=== PATIENT | male | born 1955 | race Caucasian/White ===

== ENCOUNTER 2018-08-29 00:13 | Outpatient (CLI) | payer OTHER, SELFPAY ==
[2018-08-29 10:40] LABS: HGB 16.3 g/dL (13.5-17.5); Mean Corp. HGB Concentration 34.7 g/dL (32.0-36.0); Mean Corpuscular Volume 89.4 fL (80-95); Mean Platelet Volume 10.5 fL (8.0-11.0); Platelet Count 196 x1000/uL (130-400); RBC 5.26 m/cumm (4.50-6.00); RBC Distribution Width 12.5 % (11.8-14.1); White Blood Cell Count 4.55 k/cumm (4.4-10.8)
[2018-08-29 11:01] LABS: Hemoglobin A1C 9.7 % (4.5-6.2)
[2018-08-29 11:18] LABS: ALT 33 U/L (12-78); AST 16 U/L (15-37); Albumin 4.1 g/dL (3.4-5.0); Alkaline Phosphatase 84 U/L (46-116); Anion Gap 9.3 mmol/L (3-11); BUN 17 mg/dL (7-18); Bilirubin, Total 0.8 mg/dL (0.2-1.0); CO2 26.7 mmol/L (21.0-32.0); CREATININE 0.95 mg/dL (0.70-1.30); Calcium 8.8 mg/dL (8.5-10.1); Chloride 101 mmol/L (98-107); Cholesterol 195 mg/dL (50-200); Glucose 257 mg/dL (70-100); HDL Cholesterol 46 mg/dL (40-60); LDL CHOLESTEROL 127 mg/dL (<100); Potassium 4.3 mmol/L (3.5-5.1); Sodium 137 mmol/L (136-145); Total Protein 7.4 g/dL (6.4-8.2); Triglyceride 133 mg/dL (30-150)
[2018-08-29 11:53] LABS: COMMENT (LAB VIEW ONLY) 260.97 mg/dL; Microalb ug/mg Crea 13.2 ug/mg Cr
== END 2018-08-29 00:33 ==
PROVIDERS: PCP Emergency Medicine; Visit Provider Family Medicine
DX: E11.9 Type 2 diabetes mellitus without complications (principal); E78.5 Hyperlipidemia, unspecified; I10 Essential (primary) hypertension; Z00.00 Encounter for general adult medical examination without abnormal findings; Z01.818 Encounter for other preprocedural examination
CPT/HCPCS: 36415; 80053; 80061; 83721; 85027; 82043; 82570; 83036

== ENCOUNTER 2019-03-06 00:16 | Outpatient (CLI) | payer OTHER, SELFPAY ==
[2019-03-06 10:12] LABS: Anion Gap 10.2 mmol/L (3-11); BUN 21 mg/dL (7-18); CO2 26.8 mmol/L (21.0-32.0); CREATININE 0.81 mg/dL (0.70-1.30); Calcium 9.2 mg/dL (8.5-10.1); Chloride 100 mmol/L (98-107); Glucose 150 mg/dL (70-100); Potassium 4.5 mmol/L (3.5-5.1); Sodium 137 mmol/L (136-145)
[2019-03-06 10:13] LABS: Hemoglobin A1C 8.1 % (4.5-6.2)
== END 2019-03-06 00:36 ==
PROVIDERS: PCP Emergency Medicine; Visit Provider Family Medicine
DX: E11.9 Type 2 diabetes mellitus without complications (principal)
CPT/HCPCS: 36415; 80048; 83036

== ENCOUNTER 2019-09-19 09:22 | Outpatient (CLI) | payer OTHER, SELFPAY ==
[2019-09-19 10:36] LABS: Hemoglobin A1C 9.3 % (3.8-5.6)
[2019-09-19 11:34] LABS: ALT 35 U/L (16-63); AST 18 U/L (15-37); Albumin 4.2 g/dL (3.4-5.0); Alkaline Phosphatase 83 U/L (46-116); Anion Gap 9.8 mmol/L (3-11); BUN 14 mg/dL (7-18); Bilirubin, Total 0.7 mg/dL (0.2-1.0); CO2 29.2 mmol/L (21.0-32.0); CREATININE 0.94 mg/dL (0.70-1.30); Calcium 9.1 mg/dL (8.5-10.1); Chloride 101 mmol/L (98-107); Glucose 213 mg/dL (74-106); Potassium 4.6 mmol/L (3.5-5.1); Sodium 140 mmol/L (136-145); Total Protein 7.2 g/dL (6.4-8.2)
== END 2019-09-19 09:42 ==
PROVIDERS: PCP Family Medicine; Visit Provider Family Medicine
DX: E11.9 Type 2 diabetes mellitus without complications (principal)
CPT/HCPCS: 36415; 80053; 83036

== ENCOUNTER 2020-11-24 09:48 | Outpatient (REF) | payer OTHER, SELFPAY ==
[2020-11-24 13:58] LABS: Anion Gap 5.4 mmol/L (3-11); BUN 19 mg/dL (7-18); CO2 29.6 mmol/L (21.0-32.0); COMMENT (LAB VIEW ONLY) 95.85 mg/dL; CREATININE 0.9 mg/dL (0.70-1.30); Calculated LDL 119 mg/dL (<100); Chloride 97 mmol/L (98-107); Cholesterol 206 mg/dL (<200); Glucose 261 mg/dL (74-106); HDL Cholesterol 57 mg/dL (40-60); Microalb ug/mg Crea 9.2 ug/mg Cr; Potassium 4.1 mmol/L (3.5-5.1); Sodium 132 mmol/L (136-145); Triglyceride 150 mg/dL (<150)
[2020-11-24 14:43] LABS: Hemoglobin A1C 11.2 % (<5.7)
[2020-11-24 22:02] LABS: PSA, Screening 1.9 ng/mL (0.0-4.5)
== END 2020-11-24 09:49 | disposition home or self-care (01) ==
LOC: LBN 09:48
PROVIDERS: PCP Family Medicine; Visit Provider Emergency Medicine
DX: Z00.00 Encounter for general adult medical examination without abnormal findings (principal); I10 Essential (primary) hypertension; E11.9 Type 2 diabetes mellitus without complications; Z12.5 Encounter for screening for malignant neoplasm of prostate
CPT/HCPCS: 80048; 80061; 84153; 82043; 82570; 83036

== ENCOUNTER 2020-12-26 03:03 | Outpatient (CLI) | payer OTHER, SELFPAY ==
--- NOTE | 2020-12-26 16:01 | W.NUTCONSULT ---
Date of service: 12/26/20 Time of Service: 14:00 Nutritional Consult ASSESSMENT: 65 y/o Male ( 72' /185 lbs.) presents with referral for hyperglycemia and DM education. He reports he was diagnosed 10 yrs ago.On metformin 500mg BID and recently started glipizide 10mg after visiting PCP. Documentation shows steadily climbing A1c over two years. His main concern at this encounter was A1c of 11.2 last month. He does not use regular finger sticks to track his BG levels. He reports that he know what he needs to do to lower his BG and states that he has taken action in the last month. Adriano was able to give a diet recall and was aware of where he could make adjustments to reduce and avoid sugary high CHO snacks. His breakfast meals are High CHO choices such as a doughnut and his description of lunch and supper was that of well balanced nutritionally sound meals made with fresh whole foods. Two random finger sticks at this encounter were 113 and 125 mg/dl which are WNL. This could be a result of the addition of glipizide and lifestyle change around food choices. 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 Today his PO intake was limited due to busy at work and he reported eating an orange and some PB and crackers today. He drinks diet soda, diet cranberry juice, gatorade zero. He has family hx DM with father ( now ) having had bilateral BKA's r/t the disease. He and his doo the cooking at home. NUTRITIONAL DIAGNOSIS: DX: Hyperglycemia rt DM 2 AEB: A1c 11.2%. INTERVENTION: Reviewed foot care, long-term complications associated w/ hyperglycemia.Recommended low CHO meal choices and reviewed desired BG levels. Recommended he acquire glucometer and strips to take FBG and 2 hours postprandial at supper meal to avoid encroaching on work schedule. Provided BG and food record forms to help w/ tracking. Took BG using glucometer X2 to demonstrate the proper technique and explained the importance of finger sticks. Provided literature on appropriate BG levels. Reviewed principals of CHO counting and provided examples of portion sizes and CHO values of common foodserglycemia rt DM 2 AEB: A1c 11.2%. MONITORING AND EVALUATION: Adriano is a determined man with a strong constitution that may be helpful to him as he continues to drill down on his BG numbers with diet and medicine. His lower numbers at this encounter may be evidence of that. This RD recommended return visit in 30 days to track progress and provided contact information for him to share BG readings and food record X7 days to help identify trends. Glipizide appears to be helping along with food choices. He is for the moment. on the right track. Time spent face to face: Time Spent in Nutritional Counseling and Treatment: 4 units/1 hour
== END 2020-12-26 03:04 | disposition home or self-care (01) ==
LOC: DS 03:03
PROVIDERS: PCP Family Medicine; Visit Provider Dietitian, Registered
DX: E11.65 Type 2 diabetes mellitus with hyperglycemia (principal); Z79.84 Long term (current) use of oral hypoglycemic drugs; Z71.3 Dietary counseling and surveillance
CPT/HCPCS: 97802

== ENCOUNTER 2021-02-22 08:34 | Outpatient (REF) | payer OTHER, SELFPAY ==
[2021-02-22 12:51] LABS: Anion Gap 9.4 mmol/L (3-11); BUN 16 mg/dL (7-18); CO2 28.6 mmol/L (21.0-32.0); CREATININE 0.8 mg/dL (0.70-1.30); Calcium 8.5 mg/dL (8.5-10.1); Chloride 104 mmol/L (98-107); Glucose 147 mg/dL (74-106); Potassium 3.9 mmol/L (3.5-5.1); Sodium 142 mmol/L (136-145)
[2021-02-22 12:57] LABS: Hemoglobin A1C 8.9 % (<5.7)
[2021-02-22 14:22] LABS: COMMENT (LAB VIEW ONLY) 177.99 mg/dL; Microalb ug/mg Crea 7.9 ug/mg Cr
== END 2021-02-22 08:35 | disposition home or self-care (01) ==
LOC: LBN 08:34
PROVIDERS: PCP Emergency Medicine; Visit Provider Emergency Medicine
DX: I10 Essential (primary) hypertension (principal); E11.9 Type 2 diabetes mellitus without complications
CPT/HCPCS: 80048; 82043; 82570; 83036

== ENCOUNTER 2021-12-05 02:46 | Outpatient (CLI) | payer OTHER, SELFPAY ==
[2021-12-05 17:09] LABS: COMMENT (LAB VIEW ONLY) 123.49 mg/dL; Microalb ug/mg Crea 5.9 ug/mg Cr
[2021-12-05 17:16] LABS: Hemoglobin A1C 9.3 % (<5.7)
[2021-12-05 17:47] LABS: Anion Gap 9.4 mmol/L (3-11); BUN 20 mg/dL (7-18); CO2 26.6 mmol/L (21.0-32.0); Chloride 99 mmol/L (98-107); Glucose 151 mg/dL (74-106); Potassium 4.1 mmol/L (3.5-5.1); Sodium 135 mmol/L (136-145)
[2021-12-05 17:59] LABS: Calculated LDL 104 mg/dL (<100); Cholesterol 181 mg/dL (<200); HDL Cholesterol 49 mg/dL (40-60); Triglyceride 140 mg/dL (<150)
== END 2021-12-05 02:47 | disposition home or self-care (01) ==
LOC: LBO 02:46
PROVIDERS: Emergency Medicine; PCP Nurse Practitioner Family; Visit Provider Nurse Practitioner Family
DX: I10 Essential (primary) hypertension (principal); E78.5 Hyperlipidemia, unspecified; E11.9 Type 2 diabetes mellitus without complications
CPT/HCPCS: 36415; 80048; 80061; 82043; 82570; 83036

== ENCOUNTER 2022-12-11 02:07 | Outpatient (CLI) | payer OTHER, SELFPAY ==
--- NOTE | 2022-12-11 07:45 | DI.RAD_ITS ---
Exam(s) XR SHOULDER RT COMPLETE 2+V EXAM: XR SHOULDER RT COMPLETE 2+V CLINICAL HISTORY: Failing PT, PT requested,NUMBNESS, TINGLING RT HAND, R20.0,R20.2. TECHNIQUE: 2D digital imaging was performed of the right shoulder. Five images were obtained. AP, Grashey, Y-view and axillary views were obtained. COMPARISON: No exams were available for comparison FINDINGS: BONES: No acute fracture is present. No bony destructive lesion is seen. Note is made of an os acromi hawa. JOINTS: No dislocation present. Degenerative changes are seen at the acromioclavicular and glenohumer al joints characterized by joint space narrowing and bony hypertrophy. There is a well corticated os seous density superior to the right acromioclavicular joint. This is old. SOFT TISSUE: Normal. IMPRESSION: Degenerative changes of the right shoulder as described. DATA REPOSITORY: RADIATION DOSE DELIVERED:
--- NOTE | 2022-12-11 07:45 | DI.RAD_ITS ---
Exam(s) XR CERVICAL SPINE COMP 4-5V EXAM: XR CERVICAL SPINE COMP 4-5V CLINICAL HISTORY: PT requested, failing PT,NUMBNESS TINGLING RT HAND,R20.0,R20.2. TECHNIQUE: 2D digital imaging was performed. Seven images were obtained. AP, odontoid, lateral and b ilateral oblique images were obtained. COMPARISON: No exams were available for comparison FINDINGS: The odontoid is intact. The lateral masses are well aligned. There is straightening of the normal ce rvical lordosis. There is disc space narrowing from C4-5 through C6-C7. There are endplate osteophy alphonso from C3-4 through C7-T1. No acute fracture or subluxation is present. Neural foraminal narrowing on the left is seen at C3-C4. On the right is seen at C5-6 and C6-C7. The cervical thoracic junction is well maintained. The prevertebral soft tissues are unremarkable. Lung apices are clear. IMPRESSION: Moderate cervical spondylosis. DATA REPOSITORY: RADIATION DOSE DELIVERED:
== END 2022-12-11 02:27 ==
LOC: DI 02:07
PROVIDERS: PCP Nurse Practitioner Family; Visit Provider Nurse Practitioner Family
DX: R20.0 Anesthesia of skin (principal); R20.2 Paresthesia of skin
CPT/HCPCS: 72050; 73030

== ENCOUNTER 2023-07-22 03:36 | Outpatient (CLI) | payer OTHER, SELFPAY ==
[2023-07-22 12:24] LABS: Calculated LDL 114 mg/dL (<100); Cholesterol 177 mg/dL (<200); Estimated GFR 83.52 (mL/min/1.73m2); HDL Cholesterol 47 mg/dL (40-60); Potassium 4.3 mmol/L (3.5-5.1); Triglyceride 81 mg/dL (<150)
== END 2023-07-22 03:37 | disposition home or self-care (01) ==
LOC: LOS 03:37
PROVIDERS: PCP Nurse Practitioner Family; Visit Provider Nurse Practitioner Family
DX: I10 Essential (primary) hypertension (principal); E78.5 Hyperlipidemia, unspecified
CPT/HCPCS: 36415; 80061; 82565; 84132

== ENCOUNTER 2024-03-19 01:52 | Outpatient (CLI) | payer BC, SELFPAY ==
[2024-03-19 13:17] LABS: TSH (W/Ref FT4) 0.89 uIU/mL (0.36-3.74); Vitamin B12 305 pg/mL (193-986)
[2024-03-22 13:41] LABS: Albumin 61.7 % (55.8-66.1); Albumin g/dL 4.3 g/dL (3.6-5.2); Total Protein 6.9 g/dL (6.3-8.2)
== END 2024-03-19 01:53 | disposition home or self-care (01) ==
LOC: LBO 01:52
PROVIDERS: PCP Nurse Practitioner Family; Visit Provider Psychiatry & Neurology Neurology
DX: G62.9 Polyneuropathy, unspecified (principal); E11.40 Type 2 diabetes mellitus with diabetic neuropathy, unspecified
CPT/HCPCS: 36415; 82607; 84165; 84443

== ENCOUNTER 2024-04-23 08:41 | Outpatient (CLI) | payer BC, SELFPAY ==
--- NOTE | 2024-04-23 08:15 | DI.RAD_ITS ---
Exam(s) XR KNEE LT 4V AP,LAT,MICKIE,PAT EXAM: XR KNEE LT 4V AP,LAT,MICKIE,PAT CLINICAL HISTORY: left knee pain. TECHNIQUE: 2D digital imaging was performed. Three views. COMPARISON: No exams were available for comparison FINDINGS: BONES: No acute fracture is present. No bony destructive lesion is seen. Enthesophyte at quadricep s insertion. JOINTS: The knee is normally aligned. No joint effusion is seen. The joint spaces are maintained. M inimal periarticular spurring. SOFT TISSUE: Posterior calcification which may be within a Segovia's cyst. IMPRESSION: Minimal degenerative changes. Calcification posterior soft tissues may be loose body within a Segovia' s cyst. DATA REPOSITORY: RADIATION DOSE DELIVERED:
--- NOTE | 2024-04-23 08:15 | DI.RAD_ITS ---
Exam(s) XR KNEE RT 4V AP,LAT,MICKIE,PAT EXAM: XR KNEE RT 4V AP,LAT,MICKIE,PAT CLINICAL HISTORY: right knee pain. TECHNIQUE: 2D digital imaging was performed. Three views. COMPARISON: CR XR KNEE LT 4V AP,LAT,MICKIE,PAT from 04/23/2024 FINDINGS: BONES: No acute fracture is present. No bony destructive lesion is seen. Small enthesophyte at quad riceps insertion on patella. JOINTS: The knee is normally aligned. No joint effusion is seen. Mild narrowing medial femoral tibi al joint space. Minimal periarticular spurring. SOFT TISSUE: Anterior soft tissue swelling at the level of the patella. IMPRESSION: Anterior soft tissue swelling. Mild degenerative changes of the medial femoral tibial joint space. DATA REPOSITORY: RADIATION DOSE DELIVERED:
--- NOTE | 2024-04-23 08:15 | DI.RAD_ITS ---
Exam(s) XR LUMBAR SPINE AP, LAT EXAM: XR LUMBAR SPINE AP, LAT CLINICAL HISTORY: bilateral leg pain/numbness. TECHNIQUE: 2D digital imaging was performed. Five views. COMPARISON: CR LUMBAR SPINE COMPLETE from 02/20/2010 FINDINGS: BONES: No fracture or destructive lesion. Vertebral body heights are maintained. Multilevel endpla te osteophytes, most prominent on the right side at L 2 3. Facet degenerative changes noted througho ut. DISKS: Severe narrowing of the L5-S1 disc space. Prominent osteophytes. Mild narrowing of the L3-4 disc space. The remaining intervertebral disc spaces are maintained. ALIGNMENT: Lumbar spinal alignment is within normal limits. SOFT TISSUE: Normal. IMPRESSION: Degenerative changes,, most severe at L5-S1. DATA REPOSITORY: RADIATION DOSE DELIVERED:
== END 2024-04-23 08:42 | disposition home or self-care (01) ==
LOC: DIORS 08:42
PROVIDERS: PCP Nurse Practitioner Family; Referring Provider Nurse Practitioner Family; Visit Provider Physician Assistant
DX: M25.561 Pain in right knee (principal); M25.562 Pain in left knee; R20.0 Anesthesia of skin; M51.36 Other intervertebral disc degeneration, lumbar region
CPT/HCPCS: 72100; 73564

== ENCOUNTER 2024-07-16 11:27 | Outpatient (CLI) | payer BC, SELFPAY ==
[2024-07-16 13:10] LABS: Calculated LDL 91 mg/dL (<100); Cholesterol 166 mg/dL (<200); Estimated GFR 83.01 (mL/min/1.73m2); HDL Cholesterol 60 mg/dL (40-60); Potassium 4.3 mmol/L (3.5-5.1); Triglyceride 75 mg/dL (<150)
== END 2024-07-16 11:28 | disposition home or self-care (01) ==
LOC: LBO 11:27
PROVIDERS: PCP Nurse Practitioner Family; Visit Provider Nurse Practitioner Family
DX: I10 Essential (primary) hypertension (principal); Z12.5 Encounter for screening for malignant neoplasm of prostate; Z13.220 Encounter for screening for lipoid disorders; E78.2 Mixed hyperlipidemia
CPT/HCPCS: 36415; 80061; 84153; 82565; 84132

== ENCOUNTER 2024-11-04 13:57 | Outpatient (CLI) | payer MEDICARE, SELFPAY ==
--- NOTE | 2024-11-04 13:45 | RT.EKG_ITS ---
APPROVED REPORT Exam: Resting ECG Reason for Exam: Pre-op Patient Location: O HR:85 bpm ECG Measurements Heart Rate 85 AXIS OH 153 P 67 QRSd 102 QRS 49 QT 355 T 26 QTc 422 Conclusion Sinus rhythm...normal P axis, V-rate 50- 99 Normal Electrocardiogram
== END 2024-11-04 13:58 | disposition home or self-care (01) ==
LOC: DI.CM 13:58
PROVIDERS: PCP Nurse Practitioner Family; Visit Provider Nurse Practitioner Family
DX: Z71.89 Other specified counseling (principal)
CPT/HCPCS: 93010

== ENCOUNTER 2024-11-04 15:46 | Outpatient (CLI) | payer MEDICARE, SELFPAY ==
[2024-11-04 15:26] LABS: Abs Immature Grans 0.02 10^3/uL (0.0-0.06); Absolute Basophil Count 0.07 10^3/uL (0.0-0.2); Absolute Eosinophil Count 0.29 10^3/uL (0.0-0.7); Absolute Lymphocyte Count 2.08 10^3/uL (1.2-3.4); Absolute Monocyte Count 0.57 10^3/uL (0.1-0.8); Absolute Neutrophil Count 3.49 10^3/uL (1.2-6.7); Basophils % 1.1 %; Eosinophils % 4.4 %; HCT 45.5 % (40.0-50.0); Immature Grans % 0.3 %; Lymphocytes % 31.9 %; MCH 31.8 pg (27.0-33.0); MCHC 35.2 % (32.0-36.0); MCV 91 fL (80-95); MPV 9.4 fL (8.0-11.0); Monocytes % 8.7 %; Neutrophils % 53.6 %; Platelet Count 210 10^3/uL (130-400); RBC 5.03 10^6/uL (4.36-5.78); RDW 12.5 % (11.8-14.1); RDW-SD 41.3 fL; WBC 6.52 10^3/uL (4.4-10.8)
[2024-11-04 15:34] LABS: Prothrombin Time 10.2 sec (9.1-11.1)
[2024-11-04 16:09] LABS: ALT 43 U/L (16-63); AST 20 U/L (15-37); Albumin 3.9 g/dL (3.4-5.0); Alkaline Phosphatase 76 U/L (46-116); BUN 22 mg/dL (7-18); Bilirubin, Total 0.5 mg/dL (0.2-1.0); CREATININE 1.1 mg/dL (0.70-1.30); Calcium 9.1 mg/dL (8.5-10.1); Chloride 101 mmol/L (98-107); Estimated GFR 74.04 (mL/min/1.73m2); Glucose 162 mg/dL (74-106); Potassium 4.1 mmol/L (3.5-5.1); Sodium 141 mmol/L (136-145); Total Protein 7.4 g/dL (6.4-8.2)
== END 2024-11-04 15:47 | disposition home or self-care (01) ==
LOC: LBO 15:48
PROVIDERS: PCP Nurse Practitioner Family; Visit Provider Nurse Practitioner Family
DX: E11.9 Type 2 diabetes mellitus without complications; Z71.89 Other specified counseling; Z01.818 Encounter for other preprocedural examination
CPT/HCPCS: 36415; 80053; 85025; 85610

== ENCOUNTER 2024-11-11 13:29 | Outpatient (CLI) | payer MEDICARE, SELFPAY ==
[2024-11-11 13:38] LABS: Hemoglobin A1C 6.1 % (<5.7)
== END 2024-11-11 13:30 | disposition home or self-care (01) ==
LOC: LBO 13:30
PROVIDERS: PCP Nurse Practitioner Family; Visit Provider Nurse Practitioner Family
DX: E11.9 Type 2 diabetes mellitus without complications (principal)
CPT/HCPCS: 36415; 83036